=== PATIENT | female | born 1995 | race Two or more races ===

== ENCOUNTER 2021-06-09 09:12 | Emergency (ER) | payer OTHER ==
[~2021-06-09] VITALS: Ht 157.5 cm; Wt 54.5 kg
[2021-06-09 12:31] VITALS: BP 108/68
== END 2021-06-09 12:38 | disposition home or self-care (01) ==
LOC: EMS 09:13
DX: Z00.00 Encounter for general adult medical examination without abnormal findings (principal); Z13.89 Encounter for screening for other disorder
CPT/HCPCS: 71045; 99283